=== PATIENT | female | born 1985 | race Caucasian/White ===

== ENCOUNTER 2017-10-22 17:49 | Inpatient (IN) | payer OTHER ==
[2017-10-22] MEDS ORDERED: OXYTOCIN 20 UNIT in LR 1,000 ML IV PRN (18:25)
[2017-10-22] MEDS ORDERED: EPSOM SALT 454 GM TP PRN (18:25)
[2017-10-22] MEDS ORDERED: LR 1,000 ML IV PRN (18:25)
[2017-10-22] MEDS ORDERED: OLIVE OIL 118 ML BTL MISC PRN (18:25)
[2017-10-22] MEDS ORDERED: MISOPROSTOL 200 MCG TAB PR PRN (18:25)
[2017-10-22] MEDS ORDERED: TERBUTALINE SULFATE 1 MG/ML VIAL IV PRN (18:25)
[2017-10-22] MEDS ORDERED: OXYTOCIN 30 UNIT in NS 500 ML IV SCH (20:15)
--- NOTE | 2017-10-22 20:16 | OBPROG ---
Labor Progress Note Assessment/Plan: Assessment:cat 1 fhr denies pain exam 380/-1 cephalic pitocin per protocol admit for gestational hypertension iol pih labs consult with dr. burnett gbs negative Plan:iol/ pitocin per protocol 10/22/17 20:14 Subjective/Intrapartum Course: 10/22/17 20:13 Denies pain feeling positive movement. Elevated bp. denies PIH symptoms - SVE Dilation (cm): 3 Effacement (%): 80 Station: -1 Membranes: Intact - Contraction Pattern Assessment Current Contraction Pattern: Irregular - FHR Assessment Webb FHR (bpm): 130 FHR Pattern Variability: Moderate FHR Category: 1 - Physical Exam General Appearance: WD/WN, alert, no apparent distress Respiratory: chest non-tender, lungs clear, normal breath sounds Cardiac/Chest: regular rate, rhythm Abdomen: normal bowel sounds Extremities: normal range of motion, Denise's sign (negative bilaterally) DTR- Lower Extremities: Knee (R): 1+, Knee (L): 1+ (no clonus) Skin: normal color, warm/dry Neuro/Psych: no motor/sensory deficits, alert, normal mood/affect, oriented x 3 Oxytocin Orders Assessment - Pre-Induction/Augmentation Assessment Gestational Age: 40 week(s) and 1 day(s) ICD10 Worksheet Patient Problems: Problems Problem Status Onset term iol for gestational hypertension Acute
[2017-10-22 20:43] LABS: PLATELET COUNT 263 10^3/uL (150-400)
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
[2017-10-22] MEDS ORDERED: TERBUTALINE SULFATE 1 MG/ML VIAL ONE (21:54)
[2017-10-22] MEDS ORDERED: OLIVE OIL 118 ML BTL ONE (21:54)
[2017-10-22] MEDS ORDERED: LIDOCAINE 1% 300 MG/30 ML SDV ONE (21:54)
[2017-10-22] MEDS ORDERED: OXYTOCIN 10 UNIT/ML VIAL ONE (21:55)
--- NOTE | 2017-10-23 00:36 | OBPROG ---
Labor Progress Note Assessment/Plan: Assessment:cat 2 fhr denies pain exam 90/-1 cephalic pitocin per protocol at 10 mu admit for gestational hypertension pih labs wnl consult with dr. burnett gbs negative arom clear fluid Plan:arom clear fluid 10/22/17 20:14 10/23/17 00:34 10/23/17 00:36 Subjective/Intrapartum Course: 10/22/17 20:13 Denies pain feeling positive movement. Elevated bp. denies PIH symptoms 10/23/17 00:34 Denies pain with the contractions. Doing well able to rest. Objective: 10/22/17 19:29 10/22/17 19:29 Patient ABO/Rh A POSITIVE 10/22/17 19:29 Uric Acid 4.4 mg/dL (2.5-6.8) 10/22/17 19:29 Total Bilirubin 0.2 mg/dL (0.1-1.4) 10/22/17 19:29 Conjugated Bilirubin 0.2 mg/dL (0.0-0.5) 10/22/17 19:29 Unconjugated Bilirubin 0.0 mg/dL (0.0-1.1) 10/22/17 19:29 AST 24 IU/L (14-46) 10/22/17 19:29 ALT 30 IU/L (9-52) 10/22/17 19:29 Lactate Dehydrogenase 474 IU/L (313-618) 10/22/17 19:29 - SVE Dilation (cm): 4 Effacement (%): 90 Station: -1 Membranes: AROM, Intact Amniotic Fluid Color: Clear - Contraction Pattern Assessment Current Contraction Pattern: Regular - FHR Assessment Webb FHR (bpm): 135 FHR Pattern Variability: Moderate FHR Category: 2 Oxytocin Orders Assessment - Pre-Induction/Augmentation Assessment Gestational Age: 40 week(s) and 1 day(s) ICD10 Worksheet Patient Problems: Problems Problem Status Onset term iol for gestational hypertension Acute
[2017-10-23] MEDS ORDERED: fentaNYL 2MCG/ML/BUP 0.1% RTU 100 ML BAG EP ONE (02:32)
[2017-10-23] MEDS ORDERED: PHENYLEPHRINE HCL 100 MCG/ML SYR ONE (02:32)
[2017-10-23] MEDS ORDERED: fentaNYL 100 MCG/2 ML INJ ONE (02:32)
--- NOTE | 2017-10-23 03:22 | OBPROG ---
Labor Progress Note Assessment/Plan: Assessment:cat 2 fhr denies pain exam 6-7/90/-1 cephalic pitocin per protocol at 8 mu admit for gestational hypertension pih labs wnl consult with dr. burnett gbs negative clear fluid epidural for pain relief Plan:epidural for pain relief 10/22/17 20:14 10/23/17 00:34 10/23/17 00:36 10/23/17 03:20 Subjective/Intrapartum Course: 10/22/17 20:13 Denies pain feeling positive movement. Elevated bp. denies PIH symptoms 10/23/17 00:34 Denies pain with the contractions. Doing well able to rest. 10/23/17 03:21 Requested for pain relief epidural Objective: 10/22/17 19:29 10/22/17 19:29 Patient ABO/Rh A POSITIVE 10/22/17 19:29 Uric Acid 4.4 mg/dL (2.5-6.8) 10/22/17 19:29 Total Bilirubin 0.2 mg/dL (0.1-1.4) 10/22/17 19:29 Conjugated Bilirubin 0.2 mg/dL (0.0-0.5) 10/22/17 19:29 Unconjugated Bilirubin 0.0 mg/dL (0.0-1.1) 10/22/17 19:29 AST 24 IU/L (14-46) 10/22/17 19:29 ALT 30 IU/L (9-52) 10/22/17 19:29 Lactate Dehydrogenase 474 IU/L (313-618) 10/22/17 19:29 - SVE Dilation (cm): 6, 7 Effacement (%): 80 Station: -1 Membranes: AROM Amniotic Fluid Color: Clear - Contraction Pattern Assessment Current Contraction Pattern: Regular - FHR Assessment Webb FHR (bpm): 135 FHR Pattern Variability: Moderate FHR Category: 1 Oxytocin Orders Assessment - Pre-Induction/Augmentation Assessment Gestational Age: 40 week(s) and 1 day(s) ICD10 Worksheet Patient Problems: Problems Problem Status Onset term iol for gestational hypertension Acute
[2017-10-23] MEDS ORDERED: NALOXONE HCL 0.4 MG/ML INJ IVP PRN (03:24)
[2017-10-23] MEDS ORDERED: PHENYLEPHRINE HCL 100 MCG/ML SYR IVP PRN (03:24)
[2017-10-23] MEDS ORDERED: ONDANSETRON 4 MG/2 ML VIAL IVP PRN (03:24)
[2017-10-23] MEDS ORDERED: METOCLOPRAMIDE 10 MG/2 ML VIAL IVP PRN (03:24)
[2017-10-23] MEDS ORDERED: LR 500 ML IV SCH (03:30)
[2017-10-23] MEDS ORDERED: fentaNYL 2MCG/ML/BUP 0.1% RTU 100 ML EP SCH (03:30)
--- NOTE | 2017-10-23 06:32 | OBPROG ---
Labor Progress Note Assessment/Plan: Assessment:cat 2 fhr denies pain exam 10/100/+2 cephalic pitocin per protocol at 6 mu gestational hyper tension bp better after epidural pih labs wnl consult with dr. burnett gbs negative clear fluid + bloody show epidural for pain relief push x1 no head movement will labor down report to oncoming physcian dr. cyndi sawyer Plan:labor down 10/22/17 20:14 10/23/17 00:34 10/23/17 00:36 10/23/17 03:20 10/23/17 06:30 Subjective/Intrapartum Course: gestatonal hypertension, admit, iol pitocin arom clear fluid, epidural, pih labs wnl, 10/22/17 20:13 Denies pain feeling positive movement. Elevated bp. denies PIH symptoms 10/23/17 00:34 Denies pain with the contractions. Doing well able to rest. 10/23/17 03:21 Requested for pain relief epidural 10/23/17 06:28 Doing well. denies pain. Feeling shaky and a little nauseaus 10/23/17 06:32 Objective: 10/22/17 19:29 10/22/17 19:29 Patient ABO/Rh A POSITIVE 10/22/17 19:29 Uric Acid 4.4 mg/dL (2.5-6.8) 10/22/17 19:29 Total Bilirubin 0.2 mg/dL (0.1-1.4) 10/22/17 19:29 Conjugated Bilirubin 0.2 mg/dL (0.0-0.5) 10/22/17 19:29 Unconjugated Bilirubin 0.0 mg/dL (0.0-1.1) 10/22/17 19:29 AST 24 IU/L (14-46) 10/22/17 19:29 ALT 30 IU/L (9-52) 10/22/17 19:29 Lactate Dehydrogenase 474 IU/L (313-618) 10/22/17 19:29 - SVE Dilation (cm): 10 Effacement (%): 100 Station: +2 Membranes: AROM Amniotic Fluid Color: Clear - Contraction Pattern Assessment Current Contraction Pattern: Regular Oxytocin Orders Assessment - Pre-Induction/Augmentation Assessment Gestational Age: 40 week(s) and 1 day(s) ICD10 Worksheet Patient Problems: Problems Problem Status Onset term iol for gestational hypertension Acute
[2017-10-23] MEDS ORDERED: HYDROCODONE/APAP 5/325 TAB PO PRN (09:34)
[2017-10-23] MEDS ORDERED: SIMETHICONE 80 MG TAB CHEW PO PRN (09:34)
[2017-10-23] MEDS ORDERED: ACETAMINOPHEN 325 MG TAB PO PRN (09:34)
[2017-10-23] MEDS ORDERED: HYDROCORTISONE 0.5% CREAM TP PRN (09:34)
--- NOTE | 2017-10-23 09:37 | OBDEL ---
Info Type: Vaginal Presentation at Delivery: Vertex L&D Analgesia/Anesthesia Type: Epidural GBS+: No Intrapartum Medications: Generic Name Dose Route Start Last Admin Trade Name Freq PRN Reason Stop Dose Admin Lactated Ringer's 1,000 mls @ 0 mls/hr 10/22/17 18:25 10/22/17 20:25 Lr IV 10/23/17 18:24 1,000 mls PRN PRN Administration SEE PROTOCOL CONDITIONS Protocol Per Protocol Oxytocin 30 unit/ Sodium 503 mls @ 0 mls/hr 10/22/17 20:15 10/22/17 20:24 Chloride IV 04/20/18 20:14 503 mls CONT MANDA Administration Protocol Per Protocol Discontinued Medications Generic Name Dose Route Start Last Admin Trade Name Freq PRN Reason Stop Dose Admin Misoprostol 800 - 1,000 mcg 10/22/17 18:25 10/23/17 09:20 Cytotec LA 600 mcg ONCE PRN Administration Vaginal Atony/Bleeding - Hospital Course Intrapartum: gestatonal hypertension, admit, iol pitocin arom clear fluid, epidural, pih labs wnl, 10/22/17 20:13 Denies pain feeling positive movement. Elevated bp. denies PIH symptoms 10/23/17 00:34 Denies pain with the contractions. Doing well able to rest. 10/23/17 03:21 Requested for pain relief epidural 10/23/17 06:28 Doing well. denies pain. Feeling shaky and a little nauseaus 10/23/17 06:32 Indications for Delivery: Gestational Hypertension Vaginal Delivery - Delivery Provider Delivery Physician/CNM: Aline Fuller - Labor and Delivery Onset of Contractions Date: 10/22/17 Onset of Contractions Time: 22:35 Onset of Contractions Type: Induced Rupture of Membranes Date: 10/23/17 Rupture of Membranes Time: 00:30 Rupture of Membranes Type: Artificial Amniotic Fluid Color: Clear Dilation Complete Date: 10/23/17 Dilation Complete Time: 06:05 Placenta Delivery Date: 10/23/17 Placenta Delivery Time: 09:12 Total Hours of Labor: 10 Non-surgical Procedures: Amniotomy Laceration: 2nd Degree Repair: 2-0, Vicryl Vaginal Sponge Count Correct: Yes Vaginal Needle Count Correct: Yes Vaginal Sweep Performed: Yes EBL: 350 Delivery Events: None - Medications Labor Augmentation/Induction Methods Used: Pitocin Labor Augmentation/Induction Indication: Contraction Strength Inadequate, Inadequate Ctx Strength, Other (Specify) (Gestational HTN) Data SAQIB: 10/21/17 Gestational Age: 40 week(s) and 2 day(s) Webb Delivery Date: 10/30/17 Delivery Time: 09:08 Sex of : Female Score (1 Min): 8 Score (5 Min): 9 ICD10 Worksheet Patient Problems: Problems Problem Status Onset (spontaneous vaginal delivery) Acute term iol for gestational hypertension Acute - ICD10 Problem Qualifiers (1) (spontaneous vaginal delivery)
[2017-10-23] MEDS: IBUPROFEN 600 MG TAB PO PRN ×3 (09:49→22:30)
[2017-10-23] MEDS: DOCUSATE SODIUM 100 MG CAP PO PRN (22:31)
[2017-10-24] MEDS: IBUPROFEN 600 MG TAB PO PRN ×4 (04:01→22:25)
--- NOTE | 2017-10-24 06:34 | OBPP ---
Progress Note Assessment/Plan: Assessment:nipples intact/ nipple shield for right breast/ consultation ff@u scant rubra lochia pain well managed voiding without difficulty pericare with each void perineum approximated gestational hypertension normotensive post denies PIH symptoms Plan pp day 1expectant management 10/22/17 20:14 10/23/17 00:34 10/23/17 00:36 10/23/17 03:20 10/23/17 06:30 10/24/17 06:31 10/24/17 06:34 10/24/17 06:34 Subjective/ Course: 10/24/17 06:31 Doing well denies difficulties. PAin well managed. challenges. Right nipple needing a nipple shield to assist with Objective: 10/24/17 04:00 10/22/17 19:29 Patient ABO/Rh A POSITIVE 10/22/17 19:29 Uric Acid 4.4 mg/dL (2.5-6.8) 10/22/17 19:29 Total Bilirubin 0.2 mg/dL (0.1-1.4) 10/22/17 19:29 Conjugated Bilirubin 0.2 mg/dL (0.0-0.5) 10/22/17 19:29 Unconjugated Bilirubin 0.0 mg/dL (0.0-1.1) 10/22/17 19:29 AST 24 IU/L (14-46) 10/22/17 19:29 ALT 30 IU/L (9-52) 10/22/17 19:29 Lactate Dehydrogenase 474 IU/L (313-618) 10/22/17 19:29 Temp Pulse Resp BP Pulse Ox 37.3 C 98 20 117/75 94 10/23/17 20:00 10/23/17 20:00 10/23/17 20:00 10/23/17 20:00 10/23/17 20:00 Uterine Position/Fundal Height: At Umbilicus Uterine Tone: Firm Physical Exam - Physical Exam Abdomen: other (ff@u/ scant rubra locia) Extremities: Denise's sign (negative bilaterally) DTR- Lower Extremities: Knee (R): 1+, Knee (L): 1+ (no clonus) Skin: normal color, warm/dry Neuro/Psych: no motor/sensory deficits, alert, normal mood/affect, oriented x 3
[2017-10-24] MEDS: DOCUSATE SODIUM 100 MG CAP PO PRN (09:57)
[2017-10-24 21:39] VITALS: O2SAT 96
[2017-10-25] MEDS: IBUPROFEN 600 MG TAB PO PRN ×2 (04:23→11:42)
[2017-10-25 09:15] VITALS: BP 118/79; PULSE 97; RESP 17; TEMP 97.9
--- NOTE | 2017-10-25 11:10 | OBPP ---
Progress Note Assessment/Plan: Assessment: 1) s/p PPD # 1 - pt is stable 2) Anemia - pt is asymptomatic Plan: Plan for d/c home today Instructions reviewed with pt No Rx given Cont PNV and iron Pelvic rest RTC in 4 and 6 weeks 10/25/17 11:12 Subjective/ Course: 10/24/17 06:31 Doing well denies difficulties. Pain well managed. challenges. Right nipple needing a nipple shield to assist with 10/25/17 11:07 Pt seen and examined. Doing well with no complaints. Mild cramping. Mod lochia. Voiding without difficulty. No BM yet. +flatus. BF well thus far. Objective: 10/24/17 04:00 10/22/17 19:29 Patient ABO/Rh A POSITIVE 10/22/17 19:29 Uric Acid 4.4 mg/dL (2.5-6.8) 10/22/17 19:29 Total Bilirubin 0.2 mg/dL (0.1-1.4) 10/22/17 19:29 Conjugated Bilirubin 0.2 mg/dL (0.0-0.5) 10/22/17 19:29 Unconjugated Bilirubin 0.0 mg/dL (0.0-1.1) 10/22/17 19:29 AST 24 IU/L (14-46) 10/22/17 19:29 ALT 30 IU/L (9-52) 10/22/17 19:29 Lactate Dehydrogenase 474 IU/L (313-618) 10/22/17 19:29 Temp Pulse Resp BP Pulse Ox 36.6 C 97 17 118/79 96 10/25/17 08:00 10/25/17 08:00 10/25/17 08:00 10/25/17 08:00 10/25/17 08:00 Uterine Position/Fundal Height: Umbilicus -2 Uterine Tone: Firm Physical Exam - Physical Exam Respiratory: lungs clear, normal breath sounds Cardiac/Chest: regular rate, rhythm Abdomen: normal bowel sounds, non-tender, soft, flatus (+) Extremities: non-tender, normal inspection Skin: normal color, warm/dry Neuro/Psych: alert, normal mood/affect, oriented x 3
--- NOTE | 2017-10-25 11:23 | OBGCSDC ---
General Delivery Information - General Info : 1 Para: 1 Abortions: 0 Type: Vaginal L&D Analgesia/Anesthesia Type: Epidural, Local Admission Date: 10/22/17 Labs: Patient ABO/Rh A POSITIVE 10/22/17 19:29 Hct 32.8 % (38.0-47.0) L 10/24/17 04:00 - Hospital Course Intrapartum: gestatonal hypertension, admit, iol pitocin arom clear fluid, epidural, pih labs wnl, 10/22/17 20:13 Denies pain feeling positive movement. Elevated bp. denies PIH symptoms 10/23/17 00:34 Denies pain with the contractions. Doing well able to rest. 10/23/17 03:21 Requested for pain relief epidural 10/23/17 06:28 Doing well. denies pain. Feeling shaky and a little nauseaus 10/23/17 06:32 : 10/24/17 06:31 Doing well denies difficulties. Pain well managed. challenges. Right nipple needing a nipple shield to assist with 10/25/17 11:07 Pt seen and examined. Doing well with no complaints. Mild cramping. Mod lochia. Voiding without difficulty. No BM yet. +flatus. BF well thus far. Vaginal - Delivery Provider Delivery Physician/CNM: Aline Fuller - Diagnosis Labor: Induced Rupture of Membranes Type: Artificial Amniotic Fluid Color: Clear Laceration: 2nd Degree Repair: 2-0, Vicryl Delivery Events: None - Procedures Non-surgical Procedures: Amniotomy - Delivery Non-surgical Procedures: Amniotomy EBL: 350 [place] Data SAQIB: 10/21/17 Gestational Age: 40 week(s) and 4 day(s) Webb Delivery Date: 10/23/17 Delivery Time: 09:08 Sex of Infant: Female Score (1 Min): 8 Score (5 Min): 9 Discharge Information - Discharge Information Condition: Good Instruction/Follow Up: Four Weeks, Six Weeks
== END 2017-10-25 14:42 | disposition home or self-care (01) | DRG 775 ==
LOC: FLD 17:49 → FOB 10-23 11:35
PROVIDERS: ADMIT Advanced Practice Midwife; ATTEND Obstetrics & Gynecology
PROC: 3E033VJ Introduction of Other Hormone into Peripheral Vein, Percutaneous Approach (ICD-10-PCS; 2017-10-22)
PROC: 10E0XZZ Delivery of Products of Conception, External Approach (ICD-10-PCS; principal; 2017-10-23)
PROC: 0KQM0ZZ Repair Perineum Muscle, Open Approach (ICD-10-PCS; principal; 2017-10-23)
PROC: 10907ZC Drainage of Amniotic Fluid, Therapeutic from Products of Conception, Via Natural or Artificial Opening (ICD-10-PCS; 2017-10-23)
DX: O13.4 Gestational [pregnancy-induced] hypertension without significant proteinuria, complicating childbirth (principal); O70.1 Second degree perineal laceration during delivery; Z3A.40 40 weeks gestation of pregnancy; Z37.0 Single live birth
CPT/HCPCS: J2370; J3010; J3105